=== PATIENT | female | born 1995 | race Caucasian/White ===

== ENCOUNTER 2019-09-26 05:17 | Emergency (ER) | payer SELFPAY ==
[~2019-09-26] VITALS: Ht 157.5 cm; Wt 99.8 kg
[2019-09-26] MEDS ORDERED: IV RINGERS SOLUTION,LACTATED 1,000 ML IV SCH (05:31)
--- NOTE | 2019-09-26 05:31 | PHYS DOC ---
Adult General Chief Complaint Chief Complaint: ''... I am having bad abd. cramping and pain.. nausea and vomiting.. I missed my peroid three days ago... .My urine test is positive... " [facility] HPI Patient is a 24 year old female who presents with above hx and complaint of lower pelvic pain. Pt. states this is her first . No history of trauma. No history of travel. No history immunosuppression. Patient states she h ad increased pain working and arms on when she goes up and down ladders and lift items. Patient denies any vaginal bleeding. No history of STDs. Does use vibratory, but has been 2 weeks since she has used this item. Patient states she is normally healthy. Patient denies any bad food. Ate same food that her partner ate and he did not become ill.. Patient not currently on any vitamins. Patient does smoke tobacco. (NAHUM MOYA MD) Review of Systems Review of Systems Constitutional: Denies fever or chills [] Eyes: Denies change in visual acuity, redness, or eye pain [] HENT: Denies nasal congestion or sore throat [] Respiratory: Denies cough or shortness of breath [] Cardiovascular: No additional information not addressed in HPI [] GI: Complaints of pelvic abdominal pain, nausea, vomiting. Denies bloody stools or diarrhea [] : Denies dysuria or hematuria [] Musculoskeletal: Denies back pain or joint pain [] Integument: Denies rash or skin lesions [] Neurologic: Denies headache, focal weakness or sensory changes [] Endocrine: Denies polyuria or polydipsia [] All other systems were reviewed and found to be within normal limits, except as documented in this note. (NAHUM MOYA MD) Family History Family History Noncontributory (NAHUM MOYA MD) Current Medications Current Medications See nursing for home meds (NAHUM MOYA MD) Allergies Allergies No known drug allergies (NAHUM MOYA MD) Physical Exam Physical Exam Constitutional: Moderate acute distress, non-toxic appearance. [] HENT: Normocephalic, atraumatic, bilateral external ears normal, oropharynx moist, no oral exudates, nose normal. [] Eyes: PERRLA, EOMI, conjunctiva normal, no discharge. [] Neck: Normal range of motion, no tenderness, supple, no stridor. [] Cardiovascular:Heart rate regular rhythm, no murmur [] Lungs & Thorax: Bilateral breath sounds equal at apex with scattered wheezes on auscultation [] Abdomen: Bowel sounds normal, soft, lower pelvic tenderness, no masses, no pulsatile masses. [] Rebound to lower pelvic area. Vaginal exam shows no obvious bleeding from os. Very mild cervical motion tenderness. No marked cervicitis Skin: Warm, dry, no erythema, no rash. [] Back: No tenderness, no CVA tenderness. [] Extremities: No tenderness, no cyanosis, no clubbing, ROM intact, no edema. [] No true psoas sign. Right ankle swelling-(Chronic- old injury). No cording appreciated. Neurologic: Alert and oriented X 3, normal motor function, normal sensory function, no focal deficits noted. []DTRs +2 at patella and brachial. Psychologic: Affect anxious, judgement normal, mood normal. [] (NAHUM MOYA MD) EKG EKG [] (NAHUM MOYA MD) Radiology/Procedures Radiology/Procedures US pending at shift change. [] (NAHUM MOYA MD) Radiology/Procedures PROCEDURE: OB <14 WKS W/TV INDICATION: Pelvic cramping COMPARISON: None. TECHNIQUE: Grayscale and color ultrasound images uterus and adnexa. Transabdominal and transvaginal images obtained. Transvaginal images were needed to better visualize structures that were limited on transabdominal imaging. FINDINGS: Uterus: 82 x 57 x 36 mm. Endometrial Stripe: 22 mm. Right Ovary: 37 x 26 x 26 mm. Left Ovary: 33 x 17 x 17 mm. Vascular flow identified to bilateral ovaries. Suspected 17 x 12 mm heterogenous hypoechoic lesion right ovary IMPRESSION: * No intrauterine is identified with thickened endometrial stripe seen. Would consider obtaining a follow-up exam to ensure that there is appropriate development of a gestational sac if the patient has a positive test to ensure that there is no early failure or alternative causes of a positive test such as ectopic. * Suspected hypoechoic lesion at the right ovary. Could be from causes such as hemorrhagic cyst or endometrioma but a follow-up could be obtained to ensure no increase given the nonspecific appearance. * There is some suspected fluid with debris near the cervical region versus complex nabothian cyst. (ALEXIS DYKES DO) Course & Med Decision Making Course & Med Decision Making Pertinent Labs and Imaging studies reviewed. (See chart for details) Pt. endorsed to Dr. Dykes at shift change, he will make disposition of pt. [] Impression: 1. Abdomen Pain 2. + Urine (NAHUM MOYA MD) Course & Med Decision Making Received patient at 6 AM. Agree with previous H&P. Patient continues to be in stable/good condition. She was transported to and from [facility] without any complications. After the return of the laboratory and imaging findings, these were discussed with the patient who voiced understanding. All questions were answered. She was discharged in improved condition. Medical decision making: This appears to be a very early , quantitative level of 754. She does have bacteria in the urine/urinary tract infection as well as what appears to be a contaminated specimen with significant number of epithelial cells. We will cover this since she is . Ketones are also noted. These were dressed with dextrose-containing IV fluids. She is oral intake tolerant and hungry. Will prescribe antiemetics for outpatient use. She will need to follow-up with [facility]. (ALEXIS DYKES DO) Dragon Disclaimer Dragon Disclaimer This electronic medical record was generated, in whole or in part, using a voice recognition dictation system. (NAHUM MOYA MD) Departure Departure: Impression: Primary Impression: Lower abdominal pain Additional Impressions: Urinary tract infection Nausea and vomiting Disposition: 01 HOME, SELF-CARE Condition: IMPROVED Referrals: PCP,NO (PCP) Patient Instructions: ABCs of , Abdominal Pain, Abdominal Pain During , [id number], Nausea and Vomiting Additional Instructions: Drink plenty of fluids, frequent small sips. No fatty foods, no milk, and no pepper for the next 48 hours. For the next 48 hours eat a diet rich in carbohy drates with foods such as bananas, rice, applesauce, and toast. Follow-up with your regular doctor in 2 days. If you do not have a regular doctor a list of local clinics will be provided. Do not use any drugs or medicines that are not prescribed for you. They may kill you! Do not use any anti-inflammatory medicines like ibuprofen or naproxen/Aleve. Follow-up with Dr. Jamison in [facility] in 2 days, call Saturday to arrange an appointment time [facility] [address] [place] [address] If you do not have health insurance, they will expect a $75 payment at the time of visit. Your is very early, your quantitative level is 754. This should double every 2-3 days in a normal . This will need to be followed by your primary doctor or [facility]. Return to the emergency department if worsening pain, vaginal bleeding, unable to tolerate liquids, or any other concerns. Scripts Nitrofurantoin Monohyd/M-Cryst (MACROBID 100 MG CAPSULE) 100 Mg Capsule 1 CAP PO BID for urinary tract infection for 7 Days, #14 CAP 0 Refills Prov: ALEXIS DYKES DO 09/26/19 Ondansetron Hcl (ZOFRAN) 4 Mg Tablet 1 TAB PO Q6HRS for nausea or vomiting, #20 TAB Prov: ALEXIS DYKES DO 09/26/19 Acetaminophen (TYLENOL) 325 Mg Tablet 1-2 TAB PO QID for PAIN, #60 TAB 0 Refills Prov: ALEXIS DYKES DO 09/26/19 Dragon Disclaimer This chart was dictated in whole or in part using Voice Recognition software in a busy, high-work load, and often noisy Emergency Department environment. It may contain unintended and wholly unrecognized errors or omissions. (NAHUM MOYA MD) Problem Qualifiers Additional Impressions: Weeks of gestation: less than 8 weeks Qualified Codes: Z3A.01 - Less than 8 weeks gestation of Urinary tract infection Urinary tract infection type: site unspecified Hematuria presence: without hematuria Qualified Codes: N39.0 - Urinary tract infection, site not specified Nausea and vomiting Vomiting type: unspecified Vomiting Intractability: non-intractable Qualified Codes: R11.2 - Nausea with vomiting, unspecified NAHUM MOYA MD Sep 26, 2019 05:31 ALEXIS DYKES DO Sep 26, 2019 07:53
[2019-09-26] MEDS ORDERED: ONDANSETRON PF 4 MG/2 ML VIAL. IVP ONE (05:45)
[2019-09-26] MEDS ORDERED: FAMOTIDINE 20 MG/2 ML VIAL IVP ONE (05:45)
[2019-09-26 06:22] LABS: BACTERIA,URINE FEW /HPF (0-FEW); BILIRUBIN,URINE NEG (NEG); CLARITY,URINE HAZY; COLOR,URINE YELLOW; GLUCOSE,URINE NEG (NEG); NITRITE,URINE NEG (NEG); RBC,URINE RARE /HPF (0-2); SQUAMOUS EPITHELIAL CELL,UR MOD /LPF; UROBILINOGEN,URINE 0.2 mg/dL (0.2 mg/dL)
[2019-09-26 06:27] LABS: BARBITURATES NEG (NEG); BENZODIAZEPINES NEG (NEG); CANNABINOIDS POS (NEG); COCAINE NEG (NEG); METHADONE NEG (NEG); OPIATES NEG (NEG); PHENCYCLIDINE NEG (NEG)
[2019-09-26 06:29] LABS: AMPHETAMINE/METHAMPHETAMINE NEG (NEG)
[2019-09-26 06:29] LABS: BASO # 0.1 x10^3/uL (0.0-0.2); BASO % 1 % (0-3); EOS # 0.1 x10^3/uL (0.0-0.7); EOS % 2 % (0-3); HEMATOCRIT 38.4 % (36.0-47.0); HEMOGLOBIN 12.5 g/dL (12.0-15.5); LYMPH # 3.6 x10^3/uL (1.0-4.8); LYMPH % 41 % (24-48); MEAN CORPUSCULAR HEMOGLOBIN 26 pg (25-35); MEAN CORPUSCULAR HGB CONC 33 g/dL (31-37); MEAN CORPUSCULAR VOLUME 79 fL (79-100); MONO # 0.9 x10^3/uL (0.0-1.1); MONO % 10 % (0-9); NEUT # 4.2 x10^3uL (1.8-7.7); NEUT % 47 % (31-73); PLATELET COUNT 436 x10^3/uL (140-400); RED BLOOD COUNT 4.85 x10^6/uL (3.50-5.40); RED CELL DISTRIBUTION WIDTH 15.4 % (11.5-14.5); WHITE BLOOD COUNT 8.9 x10^3/uL (4.0-11.0)
[2019-09-26 06:31] VITALS: BP 127/64
[2019-09-26 06:39] LABS: ALBUMIN 3.8 g/dL (3.4-5.0); CALCIUM 8.9 mg/dL (8.5-10.1); CREATININE 0.8 mg/dL (0.6-1.0); DIRECT BILIRUBIN 0.1 mg/dL (0.0-0.2); GFR 88.9; POTASSIUM 3.2 mmol/L (3.5-5.1); TOTAL BILIRUBIN 0.5 mg/dL (0.2-1.0); TOTAL PROTEIN 7.4 g/dL (6.4-8.2)
[2019-09-26 06:46] LABS: INFLUENZA A PATIENT NEGATIVE (NEGATIVE); INFLUENZA B PATIENT NEGATIVE (NEGATIVE)
[2019-09-26] MEDS ORDERED: IV DEXTROSE 5% - 0.9 % NACL 1,000 ML IV ONE (07:15)
--- NOTE | 2019-09-26 07:23 | RAD ---
INDICATION: Pelvic cramping COMPARISON: None. TECHNIQUE: Grayscale and color ultrasound images uterus and adnexa. Transabdominal and transvaginal images obtained. Transvaginal images were needed to better visualize structures that were limited on transabdominal imaging. FINDINGS: Uterus: 82 x 57 x 36 mm. Endometrial Stripe: 22 mm. Right Ovary: 37 x 26 x 26 mm. Left Ovary: 33 x 17 x 17 mm. Vascular flow identified to bilateral ovaries. Suspected 17 x 12 mm heterogenous hypoechoic lesion right ovary IMPRESSION: * No intrauterine is identified with thickened endometrial stripe seen. Would consider obtaining a follow-up exam to ensure that there is appropriate development of a gestational sac if the patient has a positive test to ensure that there is no early failure or alternative causes of a positive test such as ectopic. * Suspected hypoechoic lesion at the right ovary. Could be from causes such as hemorrhagic cyst or endometrioma but a follow-up could be obtained to ensure no increase given the nonspecific appearance. * There is some suspected fluid with debris near the cervical region versus complex nabothian cyst. Electronically signed by: Toni Scanlon MD (09/26/2019 7:20 AM) [facility]
[2019-09-26] MEDS ORDERED: NITR100C62 PO (07:52)
[2019-09-26] MEDS ORDERED: ONDA4TAB7 PO (07:52)
[2019-09-26] MEDS ORDERED: ACET325T9 PO (07:52)
[2019-09-28 17:07] LABS: CHLAMYDIA PROBE Negative (Negative)
== END 2019-09-26 07:56 | disposition home or self-care (01) ==
LOC: ER 05:17
DX: O23.41 Unspecified infection of urinary tract in pregnancy, first trimester (principal); O21.9 Vomiting of pregnancy, unspecified; Z3A.01 Less than 8 weeks gestation of pregnancy
CPT/HCPCS: 36415; 76801; 76817; 80048; 80076; 80307; 81001; 81025; 82150; 83690; 84443; 84702; 85025; 85610; 85730; 86592; 86703; 86705; 86709; 86803; 86900; 86901; 87086; 87340; 87491; 87591; 87804; 96361; 96374; 96375; 99285; J2405; J3490; J7042; J7120; Q0111